=== PATIENT | male | born 1990 | race Caucasian/White ===

== ENCOUNTER → 2021-06-26 11:45 | Outpatient (CLI) | payer BC, SELFPAY ==
--- NOTE | ~2021-06-26 | XR_ITS ---
XR chest 2V 06/26/2021 12:13 Indication: Shortness of breath Procedure: 2 view chest Comparison: No prior studies for comparison. Findings: Bibasilar airspace disease, compatible with pneumonia. Heart size normal. No significant ef fusion or pneumothorax. No acute osseous abnormality. Impression: 1: Bibasilar pneumonia. Reviewed, dictated and finalized at location A. Impression: 1: Bibasilar pneumonia.
== END ==
PROVIDERS: PCP Nurse Practitioner; Visit Provider Internal Medicine
DX: R06.02 Shortness of breath (principal); J18.9 Pneumonia, unspecified organism
CPT/HCPCS: 71046

== ENCOUNTER → 2023-08-07 07:34 | Outpatient (CLI) | payer BC, SELFPAY ==
--- NOTE | ~2023-08-07 | US_ITS ---
US abdomen limited DATE: 08/07/2023 08:26 INDICATION: Right upper quadrant abdominal pain TECHNIQUE: Real-time imaging of liver, pancreas, gallbladder COMPARISON: None FINDINGS: No hepatic or pancreatic space-occupying mass lesion is identified. Normal hepatopedal port al venous flow direction. No gallstones or gallbladder wall thickening or abnormal pericholecystic fluid collection. Negative s onographic Crowley's sign. The common bile duct measures 3 mm, normal. IMPRESSION: Normal examination Reviewed, dictated and finalized at Location A. Reviewed, dictated and finalized at location B. IMPRESSION: Normal examination
== END ==
PROVIDERS: PCP Nurse Practitioner; Visit Provider Nurse Practitioner
DX: R10.11 Right upper quadrant pain (principal)
CPT/HCPCS: 76705

== ENCOUNTER 2025-05-10 08:45 | Emergency (ER) | payer BC, SELFPAY ==
--- NOTE | 2025-05-10 08:46 | ED.URI ---
HPI - URI/Sore Throat General Chief Complaint: Upper Respiratory Infection Stated Complaint: Cough / congestion Time Seen by Provider: 05/10/25 08:46 Source: patient Mode of arrival: ambulatory Limitations: no limitations History of Present Illness HPI Narrative: Patient is a 34-year-old male that presents with 3 days of headache, productive cough, sore throat and feeling feverish. Highest temp was 99.8?. Has taken Mucinex. Denies any nausea, vomiting, diarrhea. Related Data Allergies Allergy/AdvReac Type Severity Reaction Status Date / Time No Known Allergies Allergy Verified 05/10/25 08:56 Review of Systems Review of Systems: All systems reviewed & are unremarkable except as noted in HPI and below Constitutional: Constitutional: Denies chills, Denies fatigue, Denies fever(s), Reports headache(s), Denies malaise and Denies weakness Eyes: Eyes: Denies blurry vision, Denies itchy eyes and Denies loss of vision ENT: Denies otalgia, Reports headache(s), Reports nasal congestion, Denies sinus pain and Reports sore throat Cardiovascular: Cardiovascular: Denies chest pain, Denies irregular heart rhythm and Denies dyspnea Respiratory: Respiratory: Reports cough and Denies dyspnea Gastrointestinal: Gastrointestinal: Denies abdominal pain, Denies diarrhea, Denies nausea and Denies vomiting Musculoskeletal: Musculoskeletal: Denies back pain, Denies myalgias and Denies arthralgias Integumentary/Breasts: Skin/Breast: Denies pruritus and Denies rash Neurologic: Reports headache(s), Denies loss of vision and Denies weakness Psychiatric: Psychiatric: Reports no additional psychiatric complaints Endocrine: Endocrine: Denies fatigue Allergic/Immunologic: Allergic/Immunologic: Denies itchy eyes PMFSH Comments At time of signature, agree with nursing past medical, surgical, social and family history. There is no relevant family history pertinent to the presenting complaint. Exam Const: General: cooperative, healthy appearing, comfortable, no acute distress and well nourished Nutritional Appearance: well nourished Orientation/consciousness: patient oriented x3 Limitations: no limitations HENMT: Head: normal to inspection, normocephalic and atraumatic Ears: hearing grossly normal bilaterally, external ears normal, TM's normal bilaterally, EAC's normal and no periauricular adenopathy Face/Nose/Sinus: Normal external nose present, Abnormal mucous membranes and turbinates present erythematous bilateral and diffuse, normal facial exam, sinuses nontender and face symmetric Face and sinus: normal facial exam, sinuses nontender and face symmetric Mouth: Yes Normal oral and palatal mucosa present, Yes lip normal, Yes tongue normal, Yes Normal salivary glands and ducts present, Yes oropharynx normal and Yes moist mucous membranes Teeth and gingiva: dentition normal Throat: tonsils normal, uvula midline and posterior oropharynx abnormal erythema (mild) Eyes: General: appearance normal, both eyes and all related structures Alignment and Position: alignment normal and position normal Periorbital: periorbital findings normal Eyelids: eyelids normal Pupils: Equal, round and reactive pupils present Neck: Neck: normal visual inspection, full ROM, no lymphadenopathy and supple Chest: Chest palpation & inspection: normal inspection of the chest and normal palpation of entire chest wall Resp: Effort & Inspection: normal respiratory effort, able to speak in complete sentences and no cough Auscultation: clear to auscultation bilaterally, no crackles, no rales, no rhonchi and no wheezes Cardio: Rate: regular rate Rhythm: regular rhythm Heart sounds: S1 normal heart sound present and S2 normal heart sound present GI: Inspection: normal to inspection Skin: General skin exam: normal color and no rashes or lesions noted Neuro: General: patient oriented x3 and moves all extremities Cranial nerves: Yes Equal, round and reactive pupils present Speech: normal speech Gait exam (Neuro): Normal gait present Extrem: General: normal to inspection, full ROM and no edema Psych: Appearance: grossly normal and well kempt Mental Status: mental status grossly normal Speech and movement: Normal speech and movement present Affect: normal affect Attitude: cooperative Thought process: Normal thought process present Course Course Emergency Course: Discharge instructions reviewed with patient, as well as provided in writing per nursing staff. The instructions also include specific and strict return/GO TO THE ER as well as f/u information. All questions have been answered, and the patient deny any further questions with discharge and discharge plan. Portions of this record may have been created with voice recognition software Level of Care: Express Care Visit Vital Signs Vital signs: Reviewed MDM - URI/Sore Throat MDM Narrative Medical decision making narrative: Pt well hydrated appearing, in no respiratory distress, hemodynamically stable. Recommend supportive care. The patient is stable at time of discharge the clinical impression was discussed and the patient was given the opportunity to ask questions, which were addressed as completely as possible given the information available at present. Anticipatory guidance and return to care precautions were discussed and the importance of primary care follow-up was stressed and encouraged. The patient voiced understanding of the plan, indications to return, and the need for follow-up. Exam findings show no acute concerns or changes Patient is appropriate for outpatient treatment and follow-up. Differential diagnosis considered: Madrigal virus, strep pharyngitis, allergic rhinitis, upper respiratory tract infection, sinusitis, rhinosinusitis, nasopharyngitis. viral pharyngitis, otitis media, otitis externa, otitis effusion, foreign body, cerumen impaction, viral syndrome, and influenza.? Discharge Plan Discharge Clinical Impression: Upper respiratory infection Qualifiers: URI type: acute nasopharyngitis (common cold) Qualified Code(s): J00 - Acute nasopharyngitis [common cold] Patient Disposition: Home Condition: Stable Instructions: Upper Respiratory Infection (ED) Additional Instructions: Your symptoms are likely due to a viral illness, which is not treated with antibiotics. Viral symptoms can be present for up to a few weeks. -For pain/fever, you may take: Tylenol 650-1000mg by mouth every 4-6 hours. Do not exceed 4000mg in 24 hours. Advil (Ibuprofen) 600 mg by mouth every 6 hours. Do not exceed 2400mg in 24 hours. 8 AM: Tylenol 11 AM: Ibuprofen 2 PM: Tylenol 5 PM: Ibuprofen 8 PM: Tylenol 11 PM: Ibuprofen 2 AM: Tylenol 5 AM: Ibuprofen -Antihistamine medication such as Benadryl/Zyrtec at night and Claritin/Rekha during the day can help improve symptoms. -Use Flonase twice a day for 5 days then daily to help reduce the inflammation and dry up your sinuses. -You can also use Sudafed behind the pharmacy counter(12 or 24 hour). Be sure to drink plenty of water with these medications at least 8 ounces with every dose and it is important to drink 8 to 10 glasses of water per day. Water is a natural decongestant -Eat and drink things that are easy to swallow, like tea or soup, or popsicles. -Oral rinses such as: Salt water gargles and/or may use topical anesthetic (eg. Chloraseptic spray) or lozenges to relieve dryness or throat pain). -Frequent hand washing or hand cattle shipper is one of the best ways to prevent spread of infection. -Using a vaporizer or humidifier at night will also help thin secretions and help with coughing up phlegm. Call your Primary Care Doctor and make a follow-up appointment in 3 days. If your cough worsens, you develop a fever greater than 103, you develop shaking chills, a fast heartbeat, trouble breathing and/or feel you are are breathing much faster than usual, call your Primary Care Doctor or go to the ER. Patient Language: Belarusian Prescriptions: New benzonatate 100 mg capsule 100 mg PO BID PRN (Reason: cough) Qty: 14 0RF fluticasone propionate [Flonase Allergy Relief] 50 mcg/actuation spray,suspension 1 spray intranasal DAILY Qty: 16 0RF Rx Instructions: administer into each nostril Follow-up/Referrals: Tez Khan MD [Physician] - 3 Days ([facility]) Time of Disposition: 09:16
[2025-05-10 08:53] VITALS: BP 136/93; PULSE 77; RESP 16; TEMP 36.2; O2SAT 98
--- OUTSIDE RECORDS SUMMARY | 2025-05-10 08:53 | XMS_ITS | Clinical Summary ---
Author Organization [facility] [place] Address [address] [place] [address] Care Team Providers Care Animal Trapper Name Role Phone Unavailable Primary Care Provider Unavailabl e Allergies No known active allergies Medications No known medications Active Problems No known active problems Social History Tobacco Use Types Packs/Day Years Used Date Smoking Tobacco: Never Smokeless Tobacco: Never Sex and Gender Information Value Date Recorded Sex Assigned at Not on file Legal Sex Male 10:09 AM [employer] Gender Identity Not on file Sexual Orientation Not on file Last Filed Vital Signs Vital Sign Reading Time Taken Comments Blood Pressure 131/86 04/25/2023 2:06 PM CDT Pulse 66 04/25/2023 2:03 PM CDT Temperature 36.6 C (97.8 F) 04/25/2023 2:03 PM CDT Respiratory Rate 18 04/25/2023 2:03 PM CDT Oxygen Saturation 99% 04/25/2023 2:03 PM CDT Inhaled Oxygen Concentration - - Weight 89.8 kg (198 lb) 04/25/2023 2:03 PM CDT Height 172.7 cm (5' 8) 04/25/2023 2:03 PM CDT Body Mass Index 30.11 04/25/2023 2:03 PM CDT Plan of Treatment Health Maintenance Due Date Last Done Comments HPV VACCINES (1 - Male 3-dos e series) 2005 HEPATITIS B VACCINES (1 of 3 - 19+ 3-dose series) 2009 DTAP/TDAP/TD VACCINES (2 - T d or Tdap) 01/21/2024 01/20/2014 INFLUENZA VACCINE (#1) 2025 7, 07/08/2016, 06/26/2015, Additional history exists Insurance [facility]
--- OUTSIDE RECORDS SUMMARY | 2025-05-10 08:54 | XMS_ITS | Continuity of Care Document ---
Author Name [facility] Organization [facility] Care Team Providers Care Emergency Worker Name Role Phone [facility] Unavailable Unavailable Allergies, Adverse Reactions, Alerts Combined list of allergies from Department of Defense and Veterans Affairs facilities. It does not include entries that were removed or entered in error. Substance Category Reaction Severity Reaction type Status Date Reported Comments Source No Known Allergies Drug allergy (disorder) active 02/08/2014 [place] [address] Immunizations Combined list of available immunizations from the Department of Defense and Veterans Affairs facilities. Immunization Series Date Given Administered By Site Reaction Lot Number CVX Code Drug Lens Finisher Status Comments Source Influenza, injectable, quadrivalent, preservative free 5 2016 [id number] 150 [employer] (SKB) complet ed Influenza , injectabl e, quadrival ent, preservat garrett free DoD influenza, injectable, quadrivalent, contains preservative 0 2015 [id number] 158 [employer] (SKB) complet ed influenza , injectabl e, quadrival ent, contains preservat garrett DoD Influenza, seasonal, injectable 0 2014 [id number] [facility] [employer] (CSL) complet ed Influenza , seasonal, injectabl e DoD Influenza, seasonal, injectable, preservative free 0 2013 [id number] 140 Novartis Platinum Software Corporationtica l Giovani. (NOV) complet ed Influenza , seasonal, injectabl e, preservat garrett free DoD poliovirus vaccine, inactivated 1 2013 [id number] 10 Sanofi Pasteur (PMC) complet ed polioviru s vaccine, inactivat ed DoD meningococcal polysaccharid e (groups A, C, Y and W-135) diphtheria toxoid conjugate vaccine (MCV4P) 1 2013 [id number] 114 Sanofi Pasteur (PMC) complet ed meningoco ccal polysacch aride (groups A, C, Y and W-135) diphtheri a toxoid conjugate vaccine (MCV4P) DoD tetanus toxoid, reduced diphtheria toxoid, and acellular pertu is vaccine, adsorbed 1 2013 [id number] 115 [employer] (SKB) complet ed tetanus toxoid, reduced diphtheri a toxoid, and acellular pertussis vaccine, adsorbed DoD Influenza, seasonal, injectable, preservative free 1 2013 [id number] 140 Novartis Appcelerator. (NOV) complet ed Influenza , seasonal, injectabl e, preservat garrett free DoD Adenovirus, type 4 and type 7, live, oral 1 2013 [id number] 143 [employer] (BRR) complet ed Adenoviru s, type 4 and type 7, live, oral DoD measles virus vaccine 0 2013 05 () Not Given measles virus vaccine DoD rubella virus vaccine 0 2013 06 () Not Given rubella virus vaccine DoD mumps virus vaccine 0 2013 07 () Not Given mumps virus vaccine DoD varicella virus vaccine 0 2013 21 () Not Given varicella virus vaccine DoD hepatitis B vaccine, unspecified formulation 0 2013 45 () Not Given hepatitis B vaccine, unspecifi ed formulati on DoD hepatitis A vaccine, adult dosage 0 2013 52 () Not Given hepatitis A vaccine, adult dosage DoD Encounters Combined list of: 1) Encounters from Department of Veterans Affairs facilities going backup to the last 18 months, not all VA inpatient encounters are included; 2) Encounters from the Department of Defense facilities going backup to 280 months. Location Location Details Encounter Type Encounter Number Reason For Visit Attending Provider ADM Date DC Date Status Disposition [place] [address]([facility]) OUTPATIENT [id number] CELSO KINGSLEY 01/23 Released w/o Limitations [facility] [place] [address](O [facility]ometr y [facility]) [place] [address](JUAN Quintana) OUTPATIENT [id number] Notes Entered by: PROMISE REYES 02 Feb 2014 1049 ------- ------- ------- ------- -- Cold Pack PROMISE REYES 02/02 Released w/o Limitations [facility] [place] [address](M MAIKOL Quintana) [facility]) TELE CONSULT [id number] Notes Entered by: JOSE PATEL 12 Jul 2014 0801 ------- ------- ------- ------- -- ALICIA Herrera 07/12 [facility](F light Medicin e [facility]) [facility] [place] OUTPATIENT [id number] Notes Entered by: SAMUEL MORRELL 01 Nov 2014 0743 ------- ------- ------- ------- -- HANH Richardson 11/01 Released w/o Limitations [facility] [facility] [facility] OUT[place] [id number] Notes Entered by: EITAN FITZPATRICK 03 Nov 2014 1140 ------- ------- ------- ------- -- KIRILL DORANTES 11/03 Released w/o Limitations [facility] [facility] [facility] [place] [facility] OUTPATIENT [id number] [facility] (#84926 nov 09) ISAAK DALAL 11/10 Released w/o Limitations [facility] [facility] [facility] TELE CONSULT [id number] Notes Entered by: KIRAN PERDOMO 24 Jan 2016 1220 ------- ------- ------- ------- -- OME 792 IS IMR REVIEW KIRAN PERDOMO 01/23 Released to Self Care [facility] [facility] [facility] [place] [facility] OUTPATIENT [id number] Notes Entered by: RA SUYAPA DELGADILLO 29 Dec 2016 1440 ------- ------- ------- ------- -- PHAQ STEPHAN DELGADILLO 12/30 Released w/o Limitations [place]) [place] [id number] eye exam JORGE SIEGEL 11/25 [place] Lim[place] [facility] OUT[place]IENT [id number] Audiogr am (was no shoe yesterd ay) JACQUELINE GUZMAN 11/25 Released w/o Limitations [place] [facility] [place] [id number] Notes Entered by: JAMES SALAZAR 26 Nov 2017 0945 ------- ------- ------- ------- -- ROBIN Hannah 11/26 [place] Limitations [place] [place] [facility] OUTPATIENT [id number] SEPARAT ION TINY SCHRADER 11/27 Released [place]/o Limitations [place] [facility] Procedures Combined list of: 1) Procedures from Department of Veterans Affairs facilities going back up to thelast 18 months, not all VA non-surgical procedures are included; 2) All procedures from the Department of Defense facilities. Procedure Procedure Type Code Date Perfomer Comments Jesus gomes Scanning Computerized Ophthalmic Diagnostic Imaging Retina Scanning Computerized Ophthalmic Diagnostic Imaging Retina 70866 8 JORGE SIEGEL Fundus Photography Fundus Photography [id number] 8 JORGE SIEGEL [employer] Fitting Monofocals (Not For Aphakia) [employer] Fitting Monofocals (Not For Aphakia) 78585 8 JORGE SIEGEL Determination Of Refractive State Determination Of Refractive State 04078 8 JORGE SIEGEL Ophthalmological New Patient Start Comprehensive Care Ophthalmological New Patient Start Comprehensive Care 04569 8 JORGE SIEGEL Threshold Audiogram (Pure Tone) Automated Threshold Audiogram (Pure Tone) Automated 0208T 8 JACQUELINE GUZMAN [facility] Patient Counseling Medical Management [facility] To [facility] Patients Patient Counseling Medical Management [facility] Patients [address]Supervised Services Provision Of Educational Supplies -Supervised Services Provision Of Educational Supplies 08275 5 KIRILL FITZPATRICK [facility] Screening Test Of Visual Acuity, Quantitative, Bilateral Screening Test Of Visual Acuity, Quantitative, Bilateral 28724 4 BENJI TONEY [facility] [employer] Fitting Monofocals (Not For Aphakia) [employer] Fitting Monofocals (Not For Aphakia) 13473 4 BENJI TONEY [facility] BRIEF EMOTIONAL/BEHAVIORAL ASSESSMENT (EG, DEPRESSION INVENTORY, ATTENTION-DEFICIT/HYP ERACTIVITY DISORDER [ADHD] SCALE), WITH SCORING AND DOCUMENTATION, PER STANDARDIZED INSTRUMENT 8 [facility] PURE TONE AUDIOMETRY (THRESHOLD), AUTOMATED; AIR ONLY 8 [facility] SCANNING COMPUTERIZED OPHTHALMIC DIAGNOSTIC IMAGING, POSTERIOR SEGMENT, WITH INTERPRETATION AND REPORT, UNILATERAL OR BILATERAL; RETINA 8 [facility] EDUCATION &TRAINING, PATIENT SELF-MGT QUALIFIED, NONPHYSICIAN HEALTH QUARRY MANAGER USING STANDARDIZED CURRICULUM, [id number] W THE PATIENT (COULD INCL CAREGIVER/FAMILY) EA 30 MIN; 5-8 PATIENTS 5 [facility] Social History Combined list of available smoking, tobacco, and other social history from Department of Defense and Veterans Affairs facilities. Social History Type Response Date Comment Sour e This section is an empty social history section. [facility]
--- OUTSIDE RECORDS SUMMARY | 2025-05-10 08:59 | XMS_ITS | Continuity of Care Document ---
Author Name [facility] Organization [facility] Care Team Providers Care Answering Service Agent Name Role Phone [facility] Unavailable Unavailable Allergies, Adverse Reactions, Alerts Combined list of allergies from Department of Defense and Veterans Affairs facilities. It does not include entries that were removed or entered in error. Substance Category Reaction Severity Reaction type Status Date Reported Comments Source No Known Allergies Drug allergy (disorder) active 02/08/2014 [place] [address] Immunizations Combined list of available immunizations from the Department of Defense and Veterans Affairs facilities. Immunization Series Date Given Administered By Site Reaction Lot Number CVX Code Drug Director Inbound Sales Status Comments Source Influenza, injectable, quadrivalent, preservative free 5 2016 [id number] [employer] (SKB) complet ed Influenza , injectabl e, quadrival ent, preservat garrett free DoD influenza, injectable, quadrivalent, contains preservative 0 2015 [id number] 158 [employer] (SKB) complet ed influenza , injectabl e, quadrival ent, contains preservat garrett DoD Influenza, seasonal, injectable 0 2014 [id number] [facility] [employer] (CSL) complet ed Influenza , seasonal, injectabl e DoD Influenza, seasonal, injectable, preservative free 0 2013 [id number] 140 Novartis Essensium[employer] l Giovani. (NOV) complet ed Influenza , seasonal, injectabl e, preservat garrett free DoD poliovirus vaccine, inactivated 1 2013 [id number] 10 Sanofi Pasteur (PMC) complet ed polioviru s vaccine, inactivat ed DoD meningococcal polysaccharid e (groups A, C, Y and W-135) diphtheria toxoid conjugate vaccine (MCV4P) 1 2013 [id number] 114 Sanofi Pasteur (PMC) complet ed meningoco ccal polysacch aride (groups A, C, Y and W-135) diphtheri a toxoid conjugate vaccine (MCV4P) DoD tetanus toxoid, reduced diphtheria toxoid, and acellular pertu is vaccine, adsorbed 1 2013 [id number] 115 [employer] (SKB) complet ed tetanus toxoid, reduced diphtheri a toxoid, and acellular pertussis vaccine, adsorbed DoD Influenza, seasonal, injectable, preservative free 1 2013 [id number] 140 Novartis Qiandao. (NOV) complet ed Influenza , seasonal, injectabl e, preservat garrett free DoD Adenovirus, type 4 and type 7, live, oral 1 2013 [id number] 143 [employer] (BRR) complet ed Adenoviru s, type 4 [...] ADM Date DC Date Status Disposition [place] [facility] [place] [address](Opt ometry Clinic [facility]) OUTPATIENT [id number] CELSO KINGSLEY 01/23 Released w/o Limitations [facility] [place] [address](O ptometr y Clinic [facility]) [place] [address](JUAN Quintana) OUTPATIENT [id number] Notes Entered by: PROMISE REYES 02 Feb 2014 1049 ------- ------- ------- ------- -- Cold Pack PROMISE REYES 02/02 Released w/o Limitations [facility] [place] [address](M MAIKOL Quintana) [facility](Fli [facility]) TELE CONSULT [id number] Notes Entered by: JOSE PATEL 12 Jul 2014 0801 ------- ------- ------- ------- -- ALICIA Herrera 07/12 [facility](F light Medicin e [facility]) [facility] [place] OUTPATIENT [id number] Notes Entered by: SAMUEL MORRELL 01 Nov 2014 0743 ------- ------- ------- ------- -- HANH Richardson 11/01 Released w/o Limitations [facility] [place]) [facility] [place] OUTPATIENT [id number] Notes Entered by: EITAN FITZPATRICK 03 Nov 2014 1140 ------- ------- ------- ------- -- KIRILL DORANTES 11/03 Released w/o Limitations [facility] [place] [place] OUTPATIENT [id number] [facility] (#60183 nov 09) ISAAK DALAL 11/10 Released w/o Limitations [facility] [place] [facility] [facility] [place] TELE CONSULT [id number] Notes Entered by: KIRAN PERDOMO 24 Jan 2016 1220 ------- ------- ------- ------- -- OME 792 IS IMR REVIEW KIRAN PERDOMO 01/23 Released to Self Care [facility] [place] [place] OUTPATIENT [id number] Notes Entered by: RA SUYAPA DELGADILLO 29 Dec 2016 1440 ------- ------- ------- ------- -- PHAQ STEPHAN DELGADILLO 12/30 [place]) [place] [id number] eye exam JORGE SIEGEL 11/25 [place], [place] [facility] OUTPATIENT [id number] Audiogr am (was no shoe yesterd ay) JACQUELINE GUZMAN 11/25 [place] [facility] [id number] Notes Entered by: JAMES SALAZAR 26 Nov 2017 0945 ------- ------- ------- ------- -- ROBIN Hannah 11/26 [place] [facility] [id number] SEPARAT ION TINY SCHRADER 11/27 [place] [facility] Procedures Combined list of: 1) Procedures from Department of Veterans Affairs facilities going back up to thelast 18 months, not all VA non-surgical procedures are included; 2) All procedures from the Department of Defense facilities. Procedure Procedure Type Code Date Perfomer Comments Jesus gomes Scanning Computerized Ophthalmic Diagnostic Imaging Retina Scanning Computerized Ophthalmic Diagnostic Imaging Retina 81997 8 JORGE SIEGEL Fundus Photography Fundus Photography [id number] 8 JORGE SIEGEL [employer] Fitting Monofocals (Not For Aphakia) [employer] Fitting Monofocals (Not For Aphakia) 79801 8 JORGE SIEGEL Determination Of Refractive State Determination Of Refractive State [id number] 8 JORGE SIEGEL Ophthalmological New Patient Start Comprehensive Care Ophthalmological New Patient Start Comprehensive Care 60244 8 JORGE SIEGEL Threshold Audiogram (Pure Tone) Automated Threshold Audiogram (Pure Tone) Automated 0208T 8 JACQUELINE GUZMAN [facility] Patient Counseling Medical Management Five To Eight Patients Patient Counseling Medical Management Five To Eight Patients [address]Supervised Services Provision Of Educational Supplies -Supervised Services Provision Of Educational Supplies 99362 5 KIRILL FITZPATRICK [facility] Screening Test Of Visual Acuity, Quantitative, Bilateral Screening Test Of Visual Acuity, Quantitative, Bilateral 72154 4 BENJI TONEY [facility] [employer] Fitting Monofocals (Not For Aphakia) [employer] Fitting Monofocals (Not For Aphakia) 71658 4 BENJI TONEY [facility] BRIEF EMOTIONAL/BEHAVIORAL ASSESSMENT (EG, DEPRESSION INVENTORY, ATTENTION-DEFICIT/HYP ERACTIVITY DISORDER [ADHD] SCALE), WITH SCORING AND DOCUMENTATION, PER STANDARDIZED INSTRUMENT 8 [facility] PURE TONE AUDIOMETRY (THRESHOLD), AUTOMATED; AIR ONLY 8 [facility] SCANNING COMPUTERIZED OPHTHALMIC DIAGNOSTIC IMAGING, POSTERIOR SEGMENT, WITH INTERPRETATION AND REPORT, UNILATERAL OR BILATERAL; RETINA 8 [facility] EDUCATION &TRAINING, PATIENT SELF-MGT QUALIFIED, NONPHYSICIAN HEALTH FILLING OPERATOR USING STANDARDIZED CURRICULUM, WLDN-XN-LBDP W THE PATIENT (COULD INCL CAREGIVER/FAMILY) EA 30 MIN; 5-8 PATIENTS 5 [facility] Social History Combined list of available smoking, tobacco, and other social history from Department of Defense and Veterans Affairs facilities. Social History Type Response Date Comment Sour e This section is an empty social history section. [facility]
== END 2025-05-10 09:19 | disposition home or self-care (01) ==
PROVIDERS: Emergency Provider Nurse Practitioner Family
DX: J00 Acute nasopharyngitis [common cold] (principal)
CPT/HCPCS: 99203; G0463